=== PATIENT | male | born 1940 | race Caucasian/White ===

== ENCOUNTER 2020-06-18 21:08 | Outpatient (CLI) | payer MEDICARE | END 2020-06-18 21:09 | disposition short-term general hospital (02) | LOC: EMS 21:08 | PROVIDERS: ATTEND Surgery | DX: R55 Syncope and collapse (principal); R11.0 Nausea; R61 Generalized hyperhidrosis; R00.1 Bradycardia, unspecified | CPT/HCPCS: A0425; A0427 ==